=== PATIENT | female | born 1950 | race Caucasian/White ===

== ENCOUNTER 2017-06-14 18:27 | Emergency (ER) | payer OTHER, MEDICAID ==
[2017-06-14] MEDS ORDERED: HYDROcodone-ACET 10/325MG TAB PO ONE (18:45)
[2017-06-15] MEDS ORDERED: HYDROcodone-ACET 10/325MG TAB PO ONE
[2017-06-15 00:49] VITALS: BP 131/76
== END 2017-06-15 00:01 | disposition home or self-care (01) ==
LOC: EDBD 18:27 → EDUNIT# 18:27 → ER 18:31
DX: S52.532A Colles' fracture of left radius, initial encounter for closed fracture (principal); W10.9XXA Fall (on) (from) unspecified stairs and steps, initial encounter; Y93.89 Activity, other specified; Y92.89 Other specified places as the place of occurrence of the external cause; Y99.8 Other external cause status
CPT/HCPCS: 25605; 73110; 73502

== ENCOUNTER 2021-09-11 09:58 | Emergency (ER) | payer OTHER, MEDICAID ==
[~2021-09-11] VITALS: Ht 154.9 cm; Wt 54.0 kg
[2021-09-11 11:57] LABS: Urine Bacteria FEW /hpf (None Seen); Urine Blood Negative /uL (Negative); Urine WBC 2 /hpf (0 - 5)
[2021-09-11] MEDS ORDERED: CIPR-173 PO (14:10)
[2021-09-11 14:16] VITALS: BP 133/71
== END 2021-09-11 14:15 | disposition home or self-care (01) ==
LOC: ER 09:58
DX: N39.0 Urinary tract infection, site not specified (principal)
CPT/HCPCS: 81001